=== PATIENT | male | born 1940 ===

== ENCOUNTER 2021-02-07 05:25 | Day surgery (SDC) | payer OTHER ==
[~2021-02-07 05:25] MED LIST: CRESTOR5 MG PO; SYNTHROID50 MCG PO; TAMS0.4C PO
== END 2021-02-07 10:40 | disposition home or self-care (01) ==
LOC: CIR.AMB 05:25 → ADM 12:45
PROVIDERS: ATTEND Surgery Surgery of the Hand
DX: M65.841 Other synovitis and tenosynovitis, right hand (principal); Z20.822 Contact with and (suspected) exposure to COVID-19

== ENCOUNTER 2021-03-28 05:35 | Day surgery (SDC) | payer OTHER | END 2021-03-28 09:20 | disposition home or self-care (01) | LOC: CIR.AMB 05:35 | PROVIDERS: ATTEND Surgery Surgery of the Hand | DX: M65.842 Other synovitis and tenosynovitis, left hand (principal); Z20.822 Contact with and (suspected) exposure to COVID-19 ==